=== PATIENT | male | born 1965 | race African-American/Black ===

== ENCOUNTER 2020-08-31 13:57 | Observation (INO) ==
--- NOTE | 2020-08-31 15:07 | DR.SOBA ---
HPI Time Seen Time Seen by Provider: 08/31/20 15:02 HPI Comment HPI Comment: PATIENT IS 54YR OLD MALE IN ER WITH INCREASING SON, PLEURITC CHEST PAIN AND WEAKNESS TIMES ONE WEEK. WORSE 3 DAYS AGO. PERIPHERAL EDEMA WELL. ON LASIX AND TAKEN MEDS INSTRUCTED. NO FEVER OR COUGH. NAUSEATED BUT NO VOM ITING. Complaints Chief Complaint Doctors Comments: INCREASING SOB TIMES ONE WEEK. Chief Complaint:: Pt reports increasing SOB with exertion x1 week, got worse 3 days ago after getting his COVID vaccine. Lungs CTA in triage. COVID-19 Coronavirus risk:travel/contact w/high risk person: No Has patient experienced Coronavirus symptoms: No Reviewed Nurses Notes Reviewed: Yes Source History Provided: Patient Mode of Arrival Mode of Arrival: Ambulatory Timing Onset of Chief Complaint: 08/24/20 Context Onset:: At Rest PE Risk Factors:: None History of:: CHF Currently on:: Neither Prehospital Care:: None Modifying Factors Worsens:: Exertion and Lying Flat Improves:: Rest and Sitting Up Associated Signs and Symptoms Associated Signs and Symptoms: Chest Pain and Leg Swelling If Chest Pain Quality: Pleuritic Location: Substernal If Cough Cough: Nonproductive PMH PMH Past Medical History: Yes Past Medical History: Hypertension Past Medical History Comment: atrial fibrillation Past Surgical History: Yes Past Surgical History Comment: neck, back Family History History of Family Medical Conditions: Yes Family Medical History: Diabetes Mellitus and Hypertension Social History Alcohol Use: Rarely Do you use any recreational Drugs:: No Travel Risk Coronavirus risk:travel/contact w/high risk person: No Has patient experienced Coronavirus symptoms: No Infectious screening Have you traveled outside the country in the last 6 months?: No Isolation: Standard ROS Review of Systems Constitutional: See HPI, Weakness and Fatigue; negative Fever Eyes: No Symptoms Reported and See HPI ENTM: No Symptoms Reported and See HPI; negative Nose Discharge and Nose Congestion Respiratoy: See HPI, Moist Cough and Short of Breath; negative Wheezing Cardiovascular: See HPI and Edema; negative Chest Pain Gastrointestinal/Abdominal: No Symptoms Reported and See HPI; negative Abdominal Pain, Diarrhea and Vomiting Genitourinary: No Symptoms Reported and See HPI; negative Dysuria, Frequency and Hematuria Neurological: See HPI and Weakness; negative Headache and Dizziness Musculoskeletal: See HPI and Back Pain; negative Muscle Pain Integumentary: No Symptoms Reported and See HPI; negative Change in Color, Rash and Juandice Hematologic/Lymphatic: No Symptoms Reported, See HPI and Easy Bruising; negative Swollen Glands Endocrine: No Symptoms Reported and See HPI; negative Increased Thirst and Increased Urine Psychiatric: No Symptoms Reported and See HPI All Other Systems: Reviewed and Negative PE Vital Signs Vitals: Temperature 98.4 F Pulse Rate 52 Respiratory Rate 19 Blood Pressure 142/82 O2 Sat by Pulse Oximetry 100 General Limitations: No Limitations General Appearance: Alert and In No Apparent Distress Head Head Exam: Normal Inspection Eyes Eye exam: Normal Appearance and PERRL; negative Scleral Icterus and Conjunctival Injection ENT ENT Exam: Normal Exam, Normal Oropharynx, Normal External Ear Exam and TM's Normal Bilaterally Neck Neck Exam: Normal Inspection and Trachea Midline; negative Tenderness, Meningismus and Lymphadenopathy Chest Chest Inspection: Normal Inspection and Symmetric Chest Wall Rise; negative Tenderness Respiratory Respiratory Exam: Normal Lung Sounds Bilat, Accessory Muscle Use and Respiratory Distress; negative Chest Wall Tenderness Respiratory Exam: Bilateral: Wheezing and Bilateral: Rhonchi and Lower: Wheezing and Lower: Rhonchi Cardiovascular Cardiovascular Exam: Regular Rate, Normal Rhythm and Normal Heart Sounds; negative Systolic Murmur and Diastolic Murmur Abdominal Exam Abdominal Exam: Normal Inspection, Normal Bowel Sounds and Soft; negative Tenderness Extremities Extremities Exam: Normal Capillary Refill and Edema; negative Tenderness and Calf Tenderness Back Back Exam: Paraspinal Tenderness; negative (R) CVA Tenderness and (L) CVA Tenderness Neurologic Neurological Exam: Alert and Oriented X3; negative Motor Sensory Deficit Psychiatric Psychiatric Exam: Normal Affect and Normal Mood Skin Skin Exam: Warm, Dry, Intact and Normal Color MDM Differential Diagnosis Differential Diagnosis: Bronchitis, CHF, COPD, Dysrhythmia, Hyponatremia, Mycardial Infarction, Pneumonia, Pneumothorax, Pulmonary embolism and Respiratory Insufficiency COURSE Treatment Treatment: SEE ORDERS. LASIX 40MG IV IN ER. URINE OUTPUT INCREASED. Education/Counseling Education/Counseling: Patient Educated On: Diagnosis ROR Labs Reviewed Laboratory Results Reviewed?: Yes Result Diagrams: 09/02/20 05:18 09/02/20 05:18 Laboratory: WBC 9.5 X10^3/uL (3.6-10.0) 08/31/20 15:15 RBC 3.66 X10^6/uL (4.7-6.0) L 08/31/20 15:15 Hgb 9.0 g/dL (13.5-18.0) L 08/31/20 15:15 Hct 28.7 % (42.0-54.0) L 08/31/20 15:15 MCV 78.5 fL (80.0-100.0) L 08/31/20 15:15 MCH 24.6 pg (27.0-34.0) L 08/31/20 15:15 MCHC 31.3 g/dL (33.0-35.0) L 08/31/20 15:15 RDW 23.8 % (11.6-16.5) H 08/31/20 15:15 Plt Count 185 X10^3/uL (150.0-450.0) 08/31/20 15:15 Plt Count Comment Adequate (ADEQUATE) 08/31/20 15:15 MPV 9.7 fL (7.4-11.0) 08/31/20 15:15 Neut % (Auto) 76.0 % (42.0-75.0) H 08/31/20 15:15 Lymph % (Auto) 11.9 % (21.0-51.0) L 08/31/20 15:15 Posey % (Auto) 11.2 % (0.0-13.0) 08/31/20 15:15 Eos % (Auto) 0.0 % (0.9-2.9) L 08/31/20 15:15 Baso % (Auto) 0.9 % (0.2-1.0) 08/31/20 15:15 Neut # (Auto) 7.2 x10^3/uL (2.2-4.8) H 08/31/20 15:15 Lymph # (Auto) 1.1 X10^3/uL (1.3-2.9) L 08/31/20 15:15 [place]y # (Auto) 1.1 x10^3/uL (0.3-0.8) H 08/31/20 15:15 Eos # (Auto) 0.0 x10^3/uL (0.0-0.2) 08/31/20 15:15 Baso # (Auto) 0.1 X10^3/uL (0.0-0.1) 08/31/20 15:15 Absolute Nucleated RBC 5.7 /100WBC 08/31/20 15:15 Total Counted 100 08/31/20 15:15 Neutrophils % (Manual) 66 % (39-76) 08/31/20 15:15 Band Neutrophils % 2 % (0-10) 08/31/20 15:15 Lymphocytes % (Manual) 20 % (13-43) 08/31/20 15:15 Monocytes % (Manual) 12 % (4-9) H 08/31/20 15:15 Nucleated RBCs 8 08/31/20 15:15 Plt Morphology Comment Normal (NORMAL) 08/31/20 15:15 RBC Morphology Abnormal (NORMAL) 08/31/20 15:15 Anisocytosis 2+ A 08/31/20 15:15 Sample Site Rra 08/31/20 17:12 ABG pH 7.480 (7.35-7.45) H 08/31/20 17:12 ABG pCO2 39.0 mmHg (35.0-45.0) 08/31/20 17:12 ABG pO2 94.0 mmHg (80.0-100.0) 08/31/20 17:12 ABG HCO3 29.0 mmol/L (22-26) H 08/31/20 17:12 ABG O2 Saturation 98.0 % (90-100) 08/31/20 17:12 ABG Base Excess 5.2 mmol/L (-2.0-2.0) H 08/31/20 17:12 Nate Test Pos 08/31/20 17:12 A-a Gradient 7.0 mmHg 08/31/20 17:12 FiO2 21.0 08/31/20 17:12 Blood Gas Comments Pt boris well eb 08/31/20 17:12 Sodium 137 mmol/L (136-145) 08/31/20 15:15 Corrected Sodium TNP 08/31/20 15:15 Potassium 3.7 mmol/L (3.5-5.1) 08/31/20 15:15 Chloride 104 mmol/L (98-107) 08/31/20 15:15 Carbon Dioxide 30.0 mmol/L (21-32) 08/31/20 15:15 BUN 17 mg/dL (7-18) 08/31/20 15:15 Creatinine 1.55 mg/dL (0.70-1.30) H 08/31/20 15:15 Est GFR (MDRD) Af Amer 60 (>60) 08/31/20 15:15 Est GFR (MDRD) Non-Af 50 (>60) L 08/31/20 15:15 Glucose 105 mg/dL (65-99) H 08/31/20 15:15 Calcium 9.2 mg/dL (8.5-10.1) 08/31/20 15:15 Corrected Calcium 9.8 mg/dL (8.5-10.1) 08/31/20 15:15 Total Bilirubin 1.70 mg/dL (0.2-1.0) H 08/31/20 15:15 AST 15 Units/L (15-37) 08/31/20 15:15 ALT 26 Units/L (12-78) 08/31/20 15:15 Alkaline Phosphatase 41 Units/L (46-116) L 08/31/20 15:15 Creatine Kinase 43 Units/L (39-308) 08/31/20 18:45 CK-MB (CK-2) < 1.0 ng/mL (0-4.0) 08/31/20 18:45 CK/CKMB % Calc 2.3 % (<4) 08/31/20 18:45 Troponin I 0.10 ng/mL (0-1.5) 08/31/20 18:45 B-Natriuretic Peptide 558 pg/mL (0-79) H* 08/31/20 15:15 Total Protein 6.2 g/dL (6.4-8.2) L 08/31/20 15:15 Albumin 3.3 g/dL (3.4-5.0) L 08/31/20 15:15 Globulin 2.9 g/dL (2.5-4.5) 08/31/20 15:15 Albumin/Globulin Ratio 1.1 Ratio (1.1-2.1) 08/31/20 15:15 Specimen Type Clean catch urine 08/31/20 15:30 Urine Color Dark yellow (YELLOW) 08/31/20 15:30 Urine Appearance Hazy (CLEAR) 08/31/20 15:30 Urine pH 6.0 (5.0 - 8.0) 08/31/20 15:30 Ur Specific [place] 1.020 (1.000-1.030) 08/31/20 15:30 Urine Protein 2+ (NEGATIVE) 08/31/20 15:30 Urine Glucose (UA) Negative (NEGATIVE) 08/31/20 15:30 Urine Ketones Negative (NEGATIVE) 08/31/20 15:30 Urine Occult Blood Negative (NEGATIVE) 08/31/20 15:30 Urine Nitrite Negative (NEGATIVE) 08/31/20 15:30 Urine Bilirubin Negative (NEGATIVE) 08/31/20 15:30 Urine Urobilinogen 1+ (NORMAL) 08/31/20 15:30 Ur Leukocyte Esterase Negative (NEGATIVE) 08/31/20 15:30 Urine RBC 0-2 /HPF (0-3) 08/31/20 15:30 Urine WBC 0-2 /HPF (0-5) 08/31/20 15:30 Ur Squamous Epith Cells Few /HPF (NEGATIVE) 08/31/20 15:30 Urine Bacteria Trace /HPF (NEGATIVE) 08/31/20 15:30 Hyaline Casts Moderate /LPF (NEGATIVE) 08/31/20 15:30 Urine Mucus Moderate /HPF (NEGATIVE) 08/31/20 15:30 Ur Culture Indicated? No/not indicated 08/31/20 15:30 SARS CoV-2 RNA Rapid ANGE Negative (NEGATIVE) 08/31/20 16:58 XRAY XRAY Interpreted by: Radiologist (REPORTS NOTED AND DISCUSSED WITH PATIENT.) and Self EKG Rate: 53 [place]: Normal Rhythm: NSR Block: None Hypertrophy: None ST: Nonsp Opioid Opioid Risk Tool Age (Krishna box if 16-45): No Total: 0 Total Score Risk Category: Low Risk Copyright: Beasley LR predicting aberrant behaviors Diagnosis Discharge Problem: Acute respiratory distress CHF (congestive heart failure) Qualifiers: Heart failure type: combined systolic and diastolic Heart failure chronicity: acute on chronic Qualified Code(s): I50.43 - Acute on chronic combined systolic (congestive) and diastolic (congestive) heart failure Instructions Instructions: Shortness of Breath, Adult, [id number] How to Take Your Blood Pressure, [id number] Heart Failure, [id number] Supporting Someone With Post-Traumatic Stress Disorder Preventing Heart Failure Cooking With Less Salt Forms: Excuse From Work or School Precautions for COVID19 Patient Portal Social Distancing
[2020-08-31 15:25] LABS: BASOPHILS # (AUTO) 0.1 X10^3/uL (0.0-0.1); BASOPHILS % (AUTO) 0.9 % (0.2-1.0); HEMATOCRIT 28.7 % (42.0-54.0); LYMPHOCYTES # (AUTO) 1.1 X10^3/uL (1.3-2.9); LYMPHOCYTES % (AUTO) 11.9 % (21.0-51.0); MEAN CORPUSCULAR HEMOGLOBIN 24.6 pg (27.0-34.0); MEAN CORPUSCULAR HGB CONC 31.3 g/dL (33.0-35.0); MEAN CORPUSCULAR VOLUME 78.5 fL (80.0-100.0); MEAN PLATELET VOLUME 9.7 fL (7.4-11.0); MONOCYTES # (AUTO) 1.1 x10^3/uL (0.3-0.8); MONOCYTES % (AUTO) 11.2 % (0.0-13.0); NEUTROPHILS # (AUTO) 7.2 x10^3/uL (2.2-4.8); PLATELET COUNT 185 X10^3/uL (150.0-450.0); RED BLOOD COUNT 3.66 X10^6/uL (4.7-6.0); RED CELL DISTRIBUTION WIDTH 23.8 % (11.6-16.5)
--- NOTE | 2020-08-31 15:36 | RAD ---
EXAM: CHEST X-RAYHISTORY: Increasing shortness of breath with exertion x1 week. Got worse 3 days after getting Combivent vaccine.TECHNIQUE: AP chest x-ray dated August 31, 2020 at 3:07 PM.COMPARISON: None.FINDINGS:There is evidence for a shallow inspiratory effort with mild prominence of the bronchopulmonary markings and widening of the cardiac silhouette. Note that mild CHF or volume overload cannot be excluded in this radiographic setting. Clinical correlation is advised.There is no gross focal lung consolidation, pleural effusion, or pneumothorax. Status post anterior cervical spine fusion with metallic plate and screws in situ. Mild deformity of the middle diaphysis of the right clavicle and keeping with an old healed fracture. The visualized bony structures are otherwise within normal limits.IMPRESSION:1. Shallow inspiratory effort with mild prominence of the bronchopulmonary markings and widening of the cardiac silhouette; DDX includes mild CHF or volume overload in the appropriate clinical setting; consider mild bronchitis and interstitial pneumonia (e.g. Covid pneumonia) in the appropriate clinical setting.2. Recommend clinical correlation and appropriate follow-up x-ray evaluation to ensure complete clearance as clinically warranted.3. Consider follow evaluation with noncontrast chest CT to rule out Covid pneumonia as clinically warranted.Electronically signed by: Enzo Palmer (Aug 31, 2020 15:34:13)
[2020-08-31 15:43] LABS: BLOOD UREA NITROGEN 17 mg/dL (7-18); CALCIUM 9.2 mg/dL (8.5-10.1); CHLORIDE 104 mmol/L (98-107); CREATININE 1.55 mg/dL (0.70-1.30); SODIUM 137 mmol/L (136-145); eGFR NON BLACK RACES 50 (>60)
[2020-08-31 15:46] LABS: WHITE BLOOD COUNT 9.5 X10^3/uL (3.6-10.0)
[2020-08-31 15:47] LABS: ALANINE AMINOTRANSFERASE 26 Units/L (12-78); ALBUMIN 3.3 g/dL (3.4-5.0); ALKALINE PHOSPHATASE 41 Units/L (46-116); ASPARTATE AMINO TRANSFERASE 15 Units/L (15-37); BAND NEUTROPHILS % 2 % (0-10); CKMB % 2.4 % (<4); COR CA(FOR HYPOALB) 9.8 mg/dL (8.5-10.1); CREATINE KINASE 42 Units/L (39-308); CREATINE KINASE MB < 1.0 ng/mL (0-4.0); TOTAL PROTEIN 6.2 g/dL (6.4-8.2)
[2020-08-31 15:48] LABS: ANISOCYTOSIS 2+; PLATELET MORPHOLOGY COMMENT NORMAL (NORMAL)
[2020-08-31 16:05] LABS: BILIRUBIN,URINE NEGATIVE (NEGATIVE); BLOOD/HEMOGLOBIN,URINE NEGATIVE (NEGATIVE); GLUCOSE, URINE NEGATIVE (NEGATIVE); KETONES,URINE NEGATIVE (NEGATIVE); LEUKOCYTE ESTERASE ,URINE NEGATIVE (NEGATIVE); NITRITES,URINE NEGATIVE (NEGATIVE); PROTEIN,URINE 2+ (NEGATIVE); UROBILINOGEN,URINE 1+ (NORMAL)
[2020-08-31 16:27] LABS: APPEARANCE,URINE HAZY (CLEAR); BACTERIA,URINE TRACE /HPF (NEGATIVE); COLOR,URINE DARK YELLOW (YELLOW); HYALINE CASTS, URINE MODERATE /LPF (NEGATIVE); MUCUS,URINE MODERATE /HPF (NEGATIVE); RBC,URINE 0-2 /HPF (0-3); SQUAMOUS EPITHELIAL CELL,UR FEW /HPF (NEGATIVE)
[2020-08-31 17:15] LABS: ABG ALLEN TEST POS; ABG BASE EXCESS 5.2 mmol/L (-2.0-2.0)
--- NOTE | 2020-08-31 17:32 | CT ---
CHEST W/O CONCLINICAL INDICATION: Shortness of breath on exertionPROCEDURE: Noncontrast CT images were obtained through the chest. Dose reduction techniques including Automated Exposure Control (AEC) and adjustment of mA and kV were utlized.COMPARISON: [None]FINDINGS:The sensitivity for focal lesion detection within the mediastinum is diminished without the use of IV contrast.Cardiomegaly. No pericardial effusion . No suspicious mediastinal or axillary lymph nodes . No focal consolidations, pleural effusions or pneumothorax .Airways are patent . No suspicious pulmonary nodules or masses .Limited images of the upper abdomen are unremarkable.Severe osteopenia multiple compression deformities as well as multiple kyphoplasties. There are some lucent lesions within T9, T10, T11.IMPRESSION:1. Cardiomegaly.2. Lucent lesions within the lower thoracic spine as above. Metastatic disease or primary bony malignancy cannot be excluded.Electronically signed by: LUCINDA NEAL (Aug 31, 2020 17:30:52)
[2020-08-31] MEDS ORDERED: LASIX IVP ONE ×2 (17:42→17:54)
[2020-08-31 19:21] LABS: CKMB % 2.3 % (<4); CREATINE KINASE 43 Units/L (39-308); CREATINE KINASE MB < 1.0 ng/mL (0-4.0)
[2020-09-01] MEDS ORDERED: PATIENT'S HOME MEDICATION (Oxycodone 20 mg tablet) PO PRN (00:44)
[2020-09-01] MEDS ORDERED: CATAPRES TAB 0.1 MG PO ONE (00:52)
[2020-09-01] MEDS ORDERED: ROXICODONE TAB 5 MG PO PRN (00:55)
[2020-09-01] MEDS: AMBIEN PO SCH ×2 (01:04→20:25)
[2020-09-01 03:51] VITALS: BMI 31.4
[2020-09-01 06:36] LABS: BASOPHILS # (AUTO) 0.1 X10^3/uL (0.0-0.1); BASOPHILS % (AUTO) 0.6 % (0.2-1.0); EOSINOPHILS % (AUTO) 0.2 % (0.9-2.9); HEMATOCRIT 28.3 % (42.0-54.0); HEMOGLOBIN 8.9 g/dL (13.5-18.0); LYMPHOCYTES # (AUTO) 1.6 X10^3/uL (1.3-2.9); LYMPHOCYTES % (AUTO) 16.2 % (21.0-51.0); MEAN CORPUSCULAR HEMOGLOBIN 24.5 pg (27.0-34.0); MEAN CORPUSCULAR HGB CONC 31.6 g/dL (33.0-35.0); MEAN CORPUSCULAR VOLUME 77.7 fL (80.0-100.0); MEAN PLATELET VOLUME 9.1 fL (7.4-11.0); MONOCYTES # (AUTO) 1.5 x10^3/uL (0.3-0.8); NEUTROPHILS # (AUTO) 6.9 x10^3/uL (2.2-4.8); PLATELET COUNT 141 X10^3/uL (150.0-450.0); RED BLOOD COUNT 3.64 X10^6/uL (4.7-6.0); RED CELL DISTRIBUTION WIDTH 23.5 % (11.6-16.5); WHITE BLOOD COUNT 10.2 X10^3/uL (3.6-10.0)
[2020-09-01 07:08] LABS: ALANINE AMINOTRANSFERASE 25 Units/L (12-78); ALKALINE PHOSPHATASE 36 Units/L (46-116); ASPARTATE AMINO TRANSFERASE 18 Units/L (15-37); BLOOD UREA NITROGEN 18 mg/dL (7-18); CALCIUM 8.7 mg/dL (8.5-10.1); CARBON DIOXIDE 27.1 mmol/L (21-32); CHLORIDE 103 mmol/L (98-107); CKMB % 2.5 % (<4); COR CA(FOR HYPOALB) 9.5 mg/dL (8.5-10.1); COR NA(FOR HYPERGLY) 141 mmol/L (136-145); CREATINE KINASE 40 Units/L (39-308); CREATINE KINASE MB < 1.0 ng/mL (0-4.0); CREATININE 1.49 mg/dL (0.70-1.30); MAGNESIUM 1.8 mg/dL (1.7-2.9); SODIUM 139 mmol/L (136-145); TOTAL PROTEIN 5.7 g/dL (6.4-8.2); eGFR NON BLACK RACES 52 (>60)
[2020-09-01 07:30] LABS: TROPONIN I 0.09 ng/mL (0-1.5)
[2020-09-01 07:38] LABS: ANISOCYTOSIS 2+; PLATELET MORPHOLOGY COMMENT NORMAL (NORMAL)
[2020-09-01 07:39] LABS: HYPOCHROMASIA SLIGHT; MICROCYTOSIS SLIGHT
[2020-09-01] MEDS: COMPAZINE PO SCH (09:47)
[2020-09-01] MEDS: ZESTRIL TAB 5 MG PO SCH (09:47)
[2020-09-01] MEDS: LASIX IVP SCH (09:49)
[2020-09-01] MEDS ORDERED: LOVENOX INJ 30 MG SYR SC SCH (11:00)
[2020-09-01 11:45] LABS: CKMB % 2.4 % (<4); CREATINE KINASE MB 1.1 ng/mL (0-4.0); TROPONIN I 0.1 ng/mL (0-1.5)
[2020-09-01] MEDS: K-DUR TAB 20 MEQ PO SCH ×2 (12:38→22:33)
--- NOTE | 2020-09-01 13:41 | DR.H&P ---
H&P - History & Physical for Day of: H&P Date: 09/01/20 - Chief Complaint Chief Complaint: Pt reports increasing SOB with exertion x1 week, got worse 3 days ago after getting his COVID vaccine - History of Present Illness History of Present Illness: PT IS 54BM ER ADMISSION AFTER PRESENTING WITH CO SOB. PT HAD CHF ON CHEST XRAY. PT REPORTS SEES DR RAMOS WITH [facility] AND REPORTS HE USED THE [place] IN [facility] FOR PCP. PT STATES HE HAS "BONE CANCER" AND WAS TO BE SEEN BY VICKIE HUERTA HISTORIAN. PT ADMITTED FOR TREATMENT OF ACUTE CHF EXACERBATION. - Past Medical History Past Medical History: Arthritis, Asthma, CHF, Coronary Artery Disease, Hypertension Additional Medical History: PTSD, "BONE CANCER" - Past Surgical History Surgical History: Other - Family History Family Medical History: Diabetes Mellitus, Hypertension - Social History Does patient currently use any type of tobacco product: No Have you used tobacco products in the last 12 months: No Type of Tobacco Use: None Does any household member use tobacco: No Alcohol Use: Rarely Drug Use: None - Medications Home Medications: No Known Drug Allergies Allergy (Verified 08/31/20 14:03) CONTINUE taking the following medications amiodarone 200 mg PO DAILY 08/31/20 [History] apixaban [Eliquis] 5 mg PO BID 08/31/20 [History] aspirin 81 mg PO ONCE 08/31/20 [History] carvedilol 6.25 mg PO BID 08/31/20 [History] dexamethasone 4 mg PO DAILY 08/31/20 [History] lisinopril 2.5 mg PO DAILY 08/31/20 [History] oxycodone 20 mg PO Q6H PRN 08/31/20 [History] prochlorperazine maleate 10 mg PO DAILY 08/31/20 [History] zolpidem 10 mg PO DAILY 08/31/20 [History] - Review of Systems Constitutional: Weakness Eyes: No Symptoms Reported ENT: No Symptoms Reported Respiratory: SOB with Excertion Cardiovascular: Edema Gastrointestinal: Nausea Musculoskeletal: No Symptoms Reported, Back Pain Skin: No Symptoms Reported Neurological: Weakness - Physical Exam Vital Signs: Temperature 98.2 F Pulse Rate [Bilateral] 53 Pulse Rate 52 Respiratory Rate 16 Blood Pressure [Left Arm] 118/62 Blood Pressure 142/82 O2 Sat by Pulse Oximetry 99 Oriented: Normal Eyes: Normal Ear: Normal Nose: Normal Throat: Normal Respiratory: RLL Diminished, LLL Diminished Cardiovascular: Edema : Normal Auscultation: Bowel Sounds: Normal Palpation: Normal Tenderness: Normal Skin: Decreased Turgur Musculoskeletal: Right, Left, Back:Thoracic, Back:Lumbar, Motor Deficit Psychiatric: Normal Mood Description: Calm Speech Pattern: Clear, Appropriate - Assessment/Plan (1) SOB (shortness of breath) Status: Acute Plan: ADMIT, SERIAL CE AND EKG. OBTAIN LAST ECHO FROM [facility]. STRICT I&OS, IV LASIX. SUPPLMENTAL O2, RESP CONSULT. VERIFY HOME MEDICATION, BP CONTROL (2) CHF (congestive heart failure) Status: Acute (3) Hypertension Status: Acute (4) PTSD (post-traumatic stress disorder) Status: Acute (5) Bone cancer Status: Acute - Allergies Allergies/Adverse Reactions: Allergies Allergy/AdvReac Type Severity Reaction Status Date / Time No Known Drug Allergies Allergy Verified 08/31/20 14:03
[2020-09-01] MEDS: ELIQUIS PO SCH ×2 (14:26→20:24)
[2020-09-01] MEDS: COREG TAB 6.25 MG PO SCH ×2 (14:26→20:24)
[2020-09-01] MEDS ORDERED: NS 250 ML IV 250 ML IV ONE (22:45)
[2020-09-01] MEDS: MAGNESIUM SULFATE 1 GRAM/100 mL PREMIX 1 GM/100 ML BAG IV PRN (22:50)
[2020-09-02] MEDS: MAGNESIUM SULFATE 1 GRAM/100 mL PREMIX 1 GM/100 ML BAG IV PRN (00:30)
--- NOTE | 2020-09-02 05:37 | RAD ---
HISTORYCHF SOBSTUDYPortable AP [id number] cardiomegaly with essentially clear lungs and pleural spaces. There is no mediastinal, hilar or pleural lesion.IMPRESSIONNo change or new abnormality since 08/31/2020.Electronically signed by: NANDINI HUDSON (Sep 02, 2020 05:35:00)
[2020-09-02 06:09] LABS: ALANINE AMINOTRANSFERASE 20 Units/L (12-78); ALBUMIN 2.9 g/dL (3.4-5.0); ALKALINE PHOSPHATASE 47 Units/L (46-116); ASPARTATE AMINO TRANSFERASE 15 Units/L (15-37); BLOOD UREA NITROGEN 14 mg/dL (7-18); CALCIUM 8.9 mg/dL (8.5-10.1); CARBON DIOXIDE 30.5 mmol/L (21-32); CHLORIDE 104 mmol/L (98-107); COR CA(FOR HYPOALB) 9.8 mg/dL (8.5-10.1); COR NA(FOR HYPERGLY) 142 mmol/L (136-145); CREATININE 1.39 mg/dL (0.70-1.30); SODIUM 141 mmol/L (136-145); TOTAL PROTEIN 5.6 g/dL (6.4-8.2); eGFR NON BLACK RACES 56 (>60)
[2020-09-02 06:10] LABS: BASOPHILS # (AUTO) 0.1 X10^3/uL (0.0-0.1); BASOPHILS % (AUTO) 1.2 % (0.2-1.0); EOSINOPHILS # (AUTO) 0.1 x10^3/uL (0.0-0.2); EOSINOPHILS % (AUTO) 1.4 % (0.9-2.9); HEMATOCRIT 29.4 % (42.0-54.0); LYMPHOCYTES # (AUTO) 1.8 X10^3/uL (1.3-2.9); LYMPHOCYTES % (AUTO) 20.1 % (21.0-51.0); MEAN CORPUSCULAR HGB CONC 30.7 g/dL (33.0-35.0); MEAN CORPUSCULAR VOLUME 78.3 fL (80.0-100.0); MEAN PLATELET VOLUME 9.5 fL (7.4-11.0); MONOCYTES # (AUTO) 1.2 x10^3/uL (0.3-0.8); MONOCYTES % (AUTO) 13.7 % (0.0-13.0); NEUTROPHILS # (AUTO) 5.6 x10^3/uL (2.2-4.8); NEUTROPHILS % (AUTO) 63.6 % (42.0-75.0); PLATELET COUNT 162 X10^3/uL (150.0-450.0); RED BLOOD COUNT 3.76 X10^6/uL (4.7-6.0); RED CELL DISTRIBUTION WIDTH 23.1 % (11.6-16.5); WHITE BLOOD COUNT 8.8 X10^3/uL (3.6-10.0)
[2020-09-02 06:30] LABS: ANISOCYTOSIS 2+; GIANT PLATELET RARE; HYPOCHROMASIA 1+; MICROCYTOSIS SLIGHT; PLATELET MORPHOLOGY COMMENT ABNORMAL (NORMAL); POIKILOCYTOSIS 1+
[2020-09-02 06:36] LABS: TEAR DROP CELLS SLIGHT
[2020-09-02] MEDS ORDERED: ASPIRIN EC 81 MG PO SCH (09:00)
[2020-09-02] MEDS: LASIX IVP SCH (09:57)
[2020-09-02] MEDS: COMPAZINE PO SCH (09:57)
[2020-09-02] MEDS: ZESTRIL TAB 5 MG PO SCH (09:57)
[2020-09-02] MEDS: COREG TAB 6.25 MG PO SCH (09:58)
[2020-09-02] MEDS: ELIQUIS PO SCH (09:58)
[2020-09-02] MEDS: K-DUR TAB 20 MEQ PO SCH (09:58)
[2020-09-02 12:06] VITALS: BP 132/84
== END 2020-09-02 13:40 | disposition home or self-care (01) ==
LOC: MED/SURG 13:57 → ER 13:57 → MED/SURG 09-01 00:25
PROVIDERS: ADMIT Internal Medicine; ATTEND Internal Medicine
DX: R06.03 Acute respiratory distress; Z20.822 Contact with and (suspected) exposure to COVID-19; Z79.01 Long term (current) use of anticoagulants; R26.89 Other abnormalities of gait and mobility; I10 Essential (primary) hypertension; F43.11 Post-traumatic stress disorder, acute; I50.9 Heart failure, unspecified

== ENCOUNTER 2020-09-18 02:24 | Observation (INO) ==
[2020-09-18] MEDS ORDERED: ZOFRAN INJ 4 MG VIAL IM ONE (03:09)
[2020-09-18] MEDS ORDERED: COREG TAB 25 MG PO STA (03:11)
--- NOTE | 2020-09-18 03:24 | DR.SOBA ---
HPI <Jen Peter - Last Filed: 09/18/20 07:41> Time Seen Time Seen by Provider: 09/18/20 03:03 Primary Care Physician Primary Care Physician: Gonsalo MYERS HPI Comment HPI Comment: Started with n/v earlier in the night and is now feeling like he can't catch his breath when he sits up; sob and "a little cp" but no cough, whe ezing, fever, chills, abd pain, swelling, rash; denies cigarettes; drinks "a wine cooler" occasionally but none tonight; says he's taking his meds as prescribed and hasn't missed any doses. Complaints Chief Complaint:: C/O DIFF BREATHING, VOMITTING FOR APPROX 1 DAY COVID-19 Coronavirus risk:travel/contact w/high risk person: No Has patient experienced Coronavirus symptoms: Yes Coronavirus symptoms experienced: Fever and Shortness of Breath Source History Provided: Patient Mode of Arrival Mode of Arrival: Ambulatory Timing Onset of Chief Complaint: 09/17/20 PMH <Jen Peter - Last Filed: 09/18/20 07:41> PMH Past Medical History: Yes Past Medical History: Hypertension and Sleep Apnea Past Surgical History: No Surgical History: Other Family History History of Family Medical Conditions: No Family Medical History: Diabetes Mellitus and Hypertension Social History Does patient currently use any type of tobacco product: No Have you used tobacco products in the last 12 months: No Type of Tobacco Use: None Does any household member use tobacco: No Alcohol Use: Occasionally and Other Do you use any recreational Drugs:: No Lives With: Spouse Lives Where: Home Travel Risk Coronavirus risk:travel/contact w/high risk person: No Has patient experienced Coronavirus symptoms: Yes Coronavirus symptoms experienced: Fever and Shortness of Breath Infectious screening In the last 2 months have you had wt loss of >10#?: NO Have you had fever, night sweats or hemotysis?: No Have you traveled outside the country in the last 6 months?: No Isolation: Standard ROS <Jen Peter - Last Filed: 09/18/20 07:41> Review of Systems Constitutional: No Symptoms Reported Eyes: No Symptoms Reported ENTM: No Symptoms Reported Genitourinary: No Symptoms Reported Neurological: No Symptoms Reported Musculoskeletal: No Symptoms Reported Integumentary: No Symptoms Reported Hematologic/Lymphatic: No Symptoms Reported Endocrine: No Symptoms Reported PE <Jen Peter - Last Filed: 09/18/20 07:41> Vital Signs Vitals: Temperature 99.9 F Pulse Rate [Left] 74 Pulse Rate 83 Respiratory Rate 18 Blood Pressure [Left Arm] 138/84 Blood Pressure 176/110 O2 Sat by Pulse Oximetry 96 General Limitations: No Limitations General Appearance: Alert and In No Apparent Distress Head Head Exam: Normal Inspection Eyes Eye exam: Normal Appearance ENT ENT Exam: Normal Exam Neck Neck Exam: Normal Inspection Chest Chest Inspection: Normal Inspection Respiratory Respiratory Exam: Normal Lung Sounds Bilat Respiratory Exam: Bilateral: Clear to Auscultation Cardiovascular Cardiovascular Exam: Regular Rate and Normal Rhythm Abdominal Exam Abdominal Exam: Normal Inspection, Normal Bowel Sounds, Soft and Tenderness Abdominal Tenderness: Epigastrium Extremities Extremities Exam: Normal Inspection Back Back Exam: Normal Inspection Neurologic Neurological Exam: Alert and Oriented X3 Skin Skin Exam: Warm, Dry, Intact and Normal Color <MAHAMED SULLIVAN - Last Filed: 09/18/20 10:19> Vital Signs Vitals: Temperature 99.9 F Pulse Rate [Left] 74 Pulse Rate 83 Respiratory Rate 18 Blood Pressure [Left Arm] 138/84 Blood Pressure 176/110 O2 Sat by Pulse Oximetry 96 COURSE <Jen Peter - Last Filed: 09/18/20 07:41> Treatment Treatment: [id number] care to Dr Sullivan ROR <Jen Peter - Last Filed: 09/18/20 07:41> Labs Reviewed Result Diagrams: 09/18/20 03:23 09/18/20 03:23 Laboratory: WBC 15.8 X10^3/uL (3.6-10.0) H 09/18/20 03:23 RBC 4.43 X10^6/uL (4.7-6.0) L 09/18/20 03:23 Hgb 10.8 g/dL (13.5-18.0) L 09/18/20 03:23 Hct 34.9 % (42.0-54.0) L 09/18/20 03:23 MCV 78.7 fL (80.0-100.0) L 09/18/20 03:23 MCH 24.3 pg (27.0-34.0) L 09/18/20 03:23 MCHC 30.9 g/dL (33.0-35.0) L 09/18/20 03:23 RDW 24.6 % (11.6-16.5) H 09/18/20 03:23 Plt Count 166 X10^3/uL (150.0-450.0) 09/18/20 03:23 Plt Count Comment Adequate (ADEQUATE) 09/18/20 03:23 MPV 9.0 fL (7.4-11.0) 09/18/20 03:23 Neut % (Auto) 84.7 % (42.0-75.0) H 09/18/20 03:23 Lymph % (Auto) 9.9 % (21.0-51.0) L 09/18/20 03:23 [place] % (Auto) 4.1 % (0.0-13.0) 09/18/20 03:23 Eos % (Auto) 0.1 % (0.9-2.9) L 09/18/20 03:23 Baso % (Auto) 1.2 % (0.2-1.0) H 09/18/20 03:23 Neut # (Auto) 13.4 x10^3/uL (2.2-4.8) H 09/18/20 03:23 Lymph # (Auto) 1.6 X10^3/uL (1.3-2.9) 09/18/20 03:23 [place] # (Auto) 0.7 x10^3/uL (0.3-0.8) 09/18/20 03:23 Eos # (Auto) 0.0 x10^3/uL (0.0-0.2) 09/18/20 03:23 Baso # (Auto) 0.2 X10^3/uL (0.0-0.1) H 09/18/20 03:23 Absolute Nucleated RBC 3.6 /100WBC 09/18/20 03:23 Total Counted 100 09/18/20 03:23 Neutrophils % (Manual) 83 % (39-76) H 09/18/20 03:23 Band Neutrophils % 5 % (0-10) 09/18/20 03:23 Lymphocytes % (Manual) 7 % (13-43) L 09/18/20 03:23 Monocytes % (Manual) 5 % (4-9) 09/18/20 03:23 Nucleated RBCs 12 09/18/20 03:23 Plt Morphology Comment Normal (NORMAL) 09/18/20 03:23 RBC Morphology Abnormal (NORMAL) 09/18/20 03:23 Hypochromasia Slight A 09/18/20 03:23 Poikilocytosis 1+ A 09/18/20 03:23 Anisocytosis 3+ A 09/18/20 03:23 Target Cells Present 09/18/20 03:23 Tear Drop Cells Present 09/18/20 03:23 Ovalocytes Present 09/18/20 03:23 Sodium 140 mmol/L (136-145) 09/18/20 03:23 Corrected Sodium 142 mmol/L (136-145) 09/18/20 03:23 Potassium 4.2 mmol/L (3.5-5.1) 09/18/20 03:23 Chloride 102 mmol/L (98-107) 09/18/20 03:23 Carbon Dioxide 28.1 mmol/L (21-32) 09/18/20 03:23 BUN 21 mg/dL (7-18) H 09/18/20 03:23 Creatinine 1.70 mg/dL (0.70-1.30) H 09/18/20 03:23 Est GFR (MDRD) Af Amer 54 (>60) L 09/18/20 03:23 Est GFR (MDRD) Non-Af 45 (>60) L 09/18/20 03:23 Glucose 187 mg/dL (65-99) H 09/18/20 03:23 Calcium 9.5 mg/dL (8.5-10.1) 09/18/20 03:23 Corrected Calcium TNP 09/18/20 03:23 Total Bilirubin 3.50 mg/dL (0.2-1.0) H 09/18/20 03:23 AST 20 Units/L (15-37) 09/18/20 03:23 ALT 29 Units/L (12-78) 09/18/20 03:23 Alkaline Phosphatase 46 Units/L (46-116) 09/18/20 03:23 B-Natriuretic Peptide 1630 pg/mL (0-79) H* 09/18/20 03:23 Total Protein 6.9 g/dL (6.4-8.2) 09/18/20 03:23 Albumin 3.9 g/dL (3.4-5.0) 09/18/20 03: Globulin 3.0 g/dL (2.5-4.5) 09/18/20 03: Albumin/Globulin Ratio 1.3 Ratio (1.1-2.1) 09/18/20 03:23 Specimen Type Clean catch urine 09/18/20 05:23 Urine Color Pale yellow (YELLOW) 09/18/20 05:23 Urine Appearance Clear (CLEAR) 09/18/20 05:23 Urine pH 7.0 (5.0 - 8.0) 09/18/20 05:23 Ur Specific [place] 1.010 (1.000-1.030) 09/18/20 05:23 Urine Protein Negative (NEGATIVE) 09/18/20 05:23 Urine Glucose (UA) Negative (NEGATIVE) 09/18/20 05:23 Urine Ketones Negative (NEGATIVE) 09/18/20 05:23 Urine Occult Blood Negative (NEGATIVE) 09/18/20 05:23 Urine Nitrite Negative (NEGATIVE) 09/18/20 05:23 Urine Bilirubin Negative (NEGATIVE) 09/18/20 05:23 Urine Urobilinogen Normal (NORMAL) 09/18/20 05:23 Ur Leukocyte Esterase Negative (NEGATIVE) 09/18/20 05:23 SARS CoV-2 RNA Rapid ANGE Negative (NEGATIVE) 09/18/20 09:30 <MAHAMED SULLIVAN - Last Filed: 09/18/20 10:19> Labs Reviewed Laboratory: WBC 15.8 X10^3/uL (3.6-10.0) H 09/18/20 03:23 RBC 4.43 X10^6/uL (4.7-6.0) L 09/18/20 03:23 Hgb 10.8 g/dL (13.5-18.0) L 09/18/20 03:23 Hct 34.9 % (42.0-54.0) L 09/18/20 03:23 MCV 78.7 fL (80.0-100.0) L 09/18/20 03:23 MCH 24.3 pg (27.0-34.0) L 09/18/20 03:23 MCHC 30.9 g/dL (33.0-35.0) L 09/18/20 03:23 RDW 24.6 % (11.6-16.5) H 09/18/20 03:23 Plt Count 166 X10^3/uL (150.0-450.0) 09/18/20 03:23 Plt Count Comment Adequate (ADEQUATE) 09/18/20 03:23 MPV 9.0 fL (7.4-11.0) 09/18/20 03:23 Neut % (Auto) 84.7 % (42.0-75.0) H 09/18/20 03:23 Lymph % (Auto) 9.9 % (21.0-51.0) L 09/18/20 03:23 [place] % (Auto) 4.1 % (0.0-13.0) 09/18/20 03:23 Eos % (Auto) 0.1 % (0.9-2.9) L 09/18/20 03:23 Baso % (Auto) 1.2 % (0.2-1.0) H 09/18/20 03:23 Neut # (Auto) 13.4 x10^3/uL (2.2-4.8) H 09/18/20 03:23 Lymph # (Auto) 1.6 X10^3/uL (1.3-2.9) 09/18/20 03:23 [place] # (Auto) 0.7 x10^3/uL (0.3-0.8) 09/18/20 03:23 Eos # (Auto) 0.0 x10^3/uL (0.0-0.2) 09/18/20 03:23 Baso # (Auto) 0.2 X10^3/uL (0.0-0.1) H 09/18/20 03:23 Absolute Nucleated RBC 3.6 /100WBC 09/18/20 03:23 Total Counted 100 09/18/20 03:23 Neutrophils % (Manual) 83 % (39-76) H 09/18/20 03:23 Band Neutrophils % 5 % (0-10) 09/18/20 03:23 Lymphocytes % (Manual) 7 % (13-43) L 09/18/20 03:23 Monocytes % (Manual) 5 % (4-9) 09/18/20 03:23 Nucleated RBCs 12 09/18/20 03:23 Plt Morphology Comment Normal (NORMAL) 09/18/20 03:23 RBC Morphology Abnormal (NORMAL) 09/18/20 03:23 Hypochromasia Slight A 09/18/20 03:23 Poikilocytosis 1+ A 09/18/20 03:23 Anisocytosis 3+ A 09/18/20 03:23 Target Cells Present 09/18/20 03:23 Tear Drop Cells Present 09/18/20 03:23 Ovalocytes Present 09/18/20 03:23 Sodium 140 mmol/L (136-145) 09/18/20 03:23 Corrected Sodium 142 mmol/L (136-145) 09/18/20 03:23 Potassium 4.2 mmol/L (3.5-5.1) 09/18/20 03:23 Chloride 102 mmol/L (98-107) 09/18/20 03:23 Carbon Dioxide 28.1 mmol/L (21-32) 09/18/20 03:23 BUN 21 mg/dL (7-18) H 09/18/20 03:23 Creatinine 1.70 mg/dL (0.70-1.30) H 09/18/20 03:23 Est GFR (MDRD) Af Amer 54 (>60) L 09/18/20 03:23 Est GFR (MDRD) Non-Af 45 (>60) L 09/18/20 03:23 Glucose 187 mg/dL (65-99) H 09/18/20 03:23 Calcium 9.5 mg/dL (8.5-10.1) 09/18/20 03:23 Corrected Calcium TNP 09/18/20 03:23 Total Bilirubin 3.50 mg/dL (0.2-1.0) H 09/18/20 03:23 AST 20 Units/L (15-37) 09/18/20 03:23 ALT 29 Units/L (12-78) 09/18/20 03:23 Alkaline Phosphatase 46 Units/L (46-116) 09/18/20 03:23 B-Natriuretic Peptide 1630 pg/mL (0-79) H* 09/18/20 03:23 Total Protein 6.9 g/dL (6.4-8.2) 09/18/20 03:23 Albumin 3.9 g/dL (3.4-5.0) 09/18/20 03:23 Globulin 3.0 g/dL (2.5-4.5) 09/18/20 03:23 Albumin/Globulin Ratio 1.3 Ratio (1.1-2.1) 09/18/20 03:23 Specimen Type Clean catch urine 09/18/20 05:23 Urine Color Pale yellow (YELLOW) 09/18/20 05:23 Urine Appearance Clear (CLEAR) 09/18/20 05:23 Urine pH 7.0 (5.0 - 8.0) 09/18/20 05:23 Ur Specific [place] 1.010 (1.000-1.030) 09/18/20 05:23 Urine Protein Negative (NEGATIVE) 09/18/20 05:23 Urine Glucose (UA) Negative (NEGATIVE) 09/18/20 05:23 Urine Ketones Negative (NEGATIVE) 09/18/20 05:23 Urine Occult Blood Negative (NEGATIVE) 09/18/20 05:23 Urine Nitrite Negative (NEGATIVE) 09/18/20 05:23 Urine Bilirubin Negative (NEGATIVE) 09/18/20 05:23 Urine Urobilinogen Normal (NORMAL) 09/18/20 05:23 Ur Leukocyte Esterase Negative (NEGATIVE) 09/18/20 05:23 SARS CoV-2 RNA Rapid ANGE Negative (NEGATIVE) 09/18/20 09:30 Opioid <Jen Peter - Last Filed: 09/18/20 07:41> Opioid Risk Tool Age (Krishna box if 16-45): No History of Preadolescent Sexual Abuse: No Total: 0 Total Score Risk Category: Low Risk Copyright: Ramos predicting aberrant behaviors <MAHAMED SULLIVAN - Last Filed: 09/18/20 10:19> Opioid Risk Tool Total: 0 Total Score Risk Category: Low Risk <Jen Peter - Last Filed: 09/18/20 07:41> Diagnosis Discharge Problem: Hyperbilirubinemia, Weakness generalized Nausea & vomiting Qualifiers: Vomiting type: unspecified Vomiting Intractability: non-intractable Qualified Code(s): R11.2 - Nausea with vomiting, unspecified Hypertension Qualifiers: Hypertension type: essential hypertension Qualified Code(s): I10 - Essential (primary) hypertension Pulmonary edema Qualifiers: Chronicity: acute Qualified Code(s): J81.0 - Acute pulmonary edema Instructions Forms: Precautions for COVID19 Patient Portal Social Distancing <MAHAMED Melton Filed: 09/18/20 10:19> Additional Notes Additional Notes: PATIENT SIGN OUT TO ME BY BLANCO HRENANDEZ AT 07:40AM. HAVE R KAITWED US GB REPORT. PATIENT IS STILL WEAK AND SOB. NAUSEA HAVE IMPROVED. CONTINUE TO ABDOMINAL PAIN. BILIRUBIN WAS ELEVATED WELL HIS WHITE COUNT. DIURESISNG WITH IV LASIX. BP STILL ELEVATED. PLAN IS TO GIVE CLONIDIN FOR BP CONTROL AND DISCUSS WITH MD CUSTOMER SUCCESS DIRECTOR TO ADMIT PATIENT FOR OBSERVATION. DR. CONWAY WILL ADMIT PATIENT.
[2020-09-18] MEDS ORDERED: ZOFRAN INJ 4 MG VIAL ONE (03:29)
[2020-09-18 03:38] LABS: BASOPHILS # (AUTO) 0.2 X10^3/uL (0.0-0.1); BASOPHILS % (AUTO) 1.2 % (0.2-1.0); EOSINOPHILS % (AUTO) 0.1 % (0.9-2.9); HEMATOCRIT 34.9 % (42.0-54.0); HEMOGLOBIN 10.8 g/dL (13.5-18.0); LYMPHOCYTES # (AUTO) 1.6 X10^3/uL (1.3-2.9); LYMPHOCYTES % (AUTO) 9.9 % (21.0-51.0); MEAN CORPUSCULAR HEMOGLOBIN 24.3 pg (27.0-34.0); MEAN CORPUSCULAR HGB CONC 30.9 g/dL (33.0-35.0); MEAN CORPUSCULAR VOLUME 78.7 fL (80.0-100.0); MONOCYTES # (AUTO) 0.7 x10^3/uL (0.3-0.8); MONOCYTES % (AUTO) 4.1 % (0.0-13.0); NEUTROPHILS # (AUTO) 13.4 x10^3/uL (2.2-4.8); NEUTROPHILS % (AUTO) 84.7 % (42.0-75.0); PLATELET COUNT 166 X10^3/uL (150.0-450.0); RED BLOOD COUNT 4.43 X10^6/uL (4.7-6.0); RED CELL DISTRIBUTION WIDTH 24.6 % (11.6-16.5)
[2020-09-18 03:46] LABS: ALANINE AMINOTRANSFERASE 29 Units/L (12-78); ALBUMIN 3.9 g/dL (3.4-5.0); ALKALINE PHOSPHATASE 46 Units/L (46-116); ASPARTATE AMINO TRANSFERASE 20 Units/L (15-37); BLOOD UREA NITROGEN 21 mg/dL (7-18); CALCIUM 9.5 mg/dL (8.5-10.1); CARBON DIOXIDE 28.1 mmol/L (21-32); CHLORIDE 102 mmol/L (98-107); COR NA(FOR HYPERGLY) 142 mmol/L (136-145); SODIUM 140 mmol/L (136-145); TOTAL PROTEIN 6.9 g/dL (6.4-8.2); eGFR NON BLACK RACES 45 (>60)
[2020-09-18 04:16] LABS: BAND NEUTROPHILS % 5 % (0-10); PLATELET MORPHOLOGY COMMENT NORMAL (NORMAL); WHITE BLOOD COUNT 15.8 X10^3/uL (3.6-10.0)
[2020-09-18 04:17] LABS: ANISOCYTOSIS 3+; HYPOCHROMASIA SLIGHT; OVALOCYTES PRESENT; POIKILOCYTOSIS 1+; TARGET CELLS PRESENT; TEAR DROP CELLS PRESENT
[2020-09-18] MEDS ORDERED: LASIX IVP STA (04:24)
[2020-09-18] MEDS ORDERED: LASIX ONE (04:29)
[2020-09-18] MEDS ORDERED: LASIX IVP ONE ×3 (04:29→21:00)
--- NOTE | 2020-09-18 05:27 | RAD ---
STUDY: FRONTAL VIEW CHESTCOMPARISON: 09/02/2020HISTORY: PT C/O SOB X1 DAYFINDINGS:No focal consolidation is seen.The heart size is globally enlarged with findings suggesting mild degree of pulmonary edema.The mediastinum is unremarkable.There is no evidence of pleural effusion or gross pneumothorax.The trachea is midline.IMPRESSION:1. The heart size is globally enlarged with findings suggesting mild degree of pulmonary edema.Correlation with patient BNP levels may be helpful.Electronically signed by: Tee Talley (Sep 18, 2020 05:25:23)
[2020-09-18 05:36] LABS: BILIRUBIN,URINE NEGATIVE (NEGATIVE); BLOOD/HEMOGLOBIN,URINE NEGATIVE (NEGATIVE); GLUCOSE, URINE NEGATIVE (NEGATIVE); KETONES,URINE NEGATIVE (NEGATIVE); LEUKOCYTE ESTERASE ,URINE NEGATIVE (NEGATIVE); NITRITES,URINE NEGATIVE (NEGATIVE); PROTEIN,URINE NEGATIVE (NEGATIVE); UROBILINOGEN,URINE NORMAL (NORMAL)
[2020-09-18 05:47] LABS: APPEARANCE,URINE CLEAR (CLEAR); COLOR,URINE PALE YELLOW (YELLOW)
--- NOTE | 2020-09-18 07:39 | US ---
HISTORYELEVATED BILI 3.50, NAUSEA, VOMITINGSTUDYABDOMEN USCOMPARISONNoneTECHNIQUEUltrasound of the abdomen complete.FINDINGSThe liver appears mildly echogenic and measures 17 x 10 x 10 cm. Portal vein has hepatopetal flow. The gallbladder appears normal without wall thickening, cholelithiasis, or pericholecystic fluid. Common duct measures normal at 5 mm. The right kidney measures 10 x 4 x 5 cm and the left kidney 9.5 x 5 x 5 cm. No obvious renal mass, stone or hydronephrosis. The spleen is not well visualized. Pancreas is mostly obscured but appears normal in its visualized portion. IVC appears normal proximally. Aorta is not well visualized.IMPRESSIONMildly echogenic liver suggestive of hepatic steatosis or other parenchymal disease. Gallbladder appears normal. No common duct dilatationElectronically signed by: Gallito Rubi (Sep 18, 2020 07:37:31)
[2020-09-18] MEDS ORDERED: ZESTRIL TAB 5 MG PO ONE (08:23)
[2020-09-18] MEDS ORDERED: COREG TAB 6.25 MG PO ONE (08:24)
[2020-09-18] MEDS ORDERED: CATAPRES TAB 0.2 MG PO ONE (08:27)
[2020-09-18] MEDS ORDERED: CATAPRES TAB 0.2 MG ONE (08:49)
[2020-09-18] MEDS ORDERED: ZOFRAN INJ 4 MG VIAL IVP PRN (10:15)
[2020-09-18] MEDS: PEPCID 20 MG IV PREMIX* 20 MG/50 ML BAG IV SCH (11:58)
[2020-09-18 12:11] LABS: CKMB % 2.5 % (<4); TROPONIN I 0.17 ng/mL (0-1.5)
[2020-09-18] MEDS ORDERED: NS 250 ML IV 250 ML IV ONE (15:49)
[2020-09-18] MEDS: LEVAQUIN PREMIX IV 500 MG 500 MG/100 ML BAG IV SCH (15:50)
[2020-09-18] MEDS: ALDACTONE TAB 25 MG PO SCH (15:50)
[2020-09-18 18:04] LABS: CREATINE KINASE 33 Units/L (39-308); CREATINE KINASE MB < 1.0 ng/mL (0-4.0); TROPONIN I 0.21 ng/mL (0-1.5)
[2020-09-18] MEDS ORDERED: COREG TAB 6.25 MG ONE (19:11)
[2020-09-18] MEDS: COREG TAB 6.25 MG PO SCH (20:27)
[2020-09-18] MEDS: RESTORIL CAP 15 MG PO PRN (22:21)
[2020-09-19 00:11] LABS: CKMB % 3.2 % (<4); CREATINE KINASE 31 Units/L (39-308); CREATINE KINASE MB < 1.0 ng/mL (0-4.0); TROPONIN I 0.21 ng/mL (0-1.5)
[2020-09-19] MEDS ORDERED: ZESTRIL TAB 5 MG ONE (04:31)
[2020-09-19] MEDS: COREG TAB 6.25 MG PO SCH ×3 (05:34→21:55)
[2020-09-19] MEDS: ZESTRIL TAB 5 MG PO SCH ×2 (05:34→08:02)
[2020-09-19] MEDS: ALDACTONE TAB 25 MG PO SCH ×3 (05:34→08:02)
[2020-09-19 06:03] LABS: BASOPHILS # (AUTO) 0.1 X10^3/uL (0.0-0.1); BASOPHILS % (AUTO) 0.7 % (0.2-1.0); EOSINOPHILS # (AUTO) 0.1 x10^3/uL (0.0-0.2); EOSINOPHILS % (AUTO) 1.1 % (0.9-2.9); HEMATOCRIT 34.3 % (42.0-54.0); HEMOGLOBIN 10.5 g/dL (13.5-18.0); LYMPHOCYTES # (AUTO) 1.2 X10^3/uL (1.3-2.9); LYMPHOCYTES % (AUTO) 10.7 % (21.0-51.0); MEAN CORPUSCULAR HEMOGLOBIN 23.9 pg (27.0-34.0); MEAN CORPUSCULAR HGB CONC 30.6 g/dL (33.0-35.0); MEAN CORPUSCULAR VOLUME 78.3 fL (80.0-100.0); MEAN PLATELET VOLUME 10.4 fL (7.4-11.0); MONOCYTES # (AUTO) 0.7 x10^3/uL (0.3-0.8); MONOCYTES % (AUTO) 6.4 % (0.0-13.0); NEUTROPHILS # (AUTO) 9.3 x10^3/uL (2.2-4.8); NEUTROPHILS % (AUTO) 81.1 % (42.0-75.0); PLATELET COUNT 162 X10^3/uL (150.0-450.0); RED BLOOD COUNT 4.39 X10^6/uL (4.7-6.0); RED CELL DISTRIBUTION WIDTH 24.1 % (11.6-16.5); WHITE BLOOD COUNT 11.4 X10^3/uL (3.6-10.0)
[2020-09-19 06:08] LABS: ALBUMIN 3.1 g/dL (3.4-5.0); CHOL/HDL RATIO 3.3 (0.0-5.0); COR CA(FOR HYPOALB) 9.7 mg/dL (8.5-10.1); CREATININE 1.83 mg/dL (0.70-1.30); MAGNESIUM 1.6 mg/dL (1.7-2.9); TOTAL PROTEIN 5.8 g/dL (6.4-8.2)
[2020-09-19 06:23] LABS: ANISOCYTOSIS 3+; PLATELET MORPHOLOGY COMMENT NORMAL (NORMAL)
[2020-09-19 06:25] LABS: HYPOCHROMASIA SLIGHT; POIKILOCYTOSIS SLIGHT
[2020-09-19 06:26] LABS: TARGET CELLS OCC.
[2020-09-19 06:27] LABS: TEAR DROP CELLS OCC.
[2020-09-19] MEDS ORDERED: POTASSIUM CHLORIDE LIQ 20 MEQ UDC PO PRN (06:30)
[2020-09-19] MEDS ORDERED: POTASSIUM CHL 60 MEQ/NS 0.45% 500 ML IV PRN (06:30)
[2020-09-19] MEDS ORDERED: K-RIDER 10 MEQ/NS 100 ML 10 MEQ/100 ML BAG IV PRN (06:30)
[2020-09-19] MEDS ORDERED: K-DUR TAB 20 MEQ PO PRN (06:30)
[2020-09-19] MEDS ORDERED: POTASSIUM CHL 40 MEQ/NS 0.45% 500 ML IV PRN (06:30)
[2020-09-19] MEDS ORDERED: KLOR-CON PO PRN (06:30)
[2020-09-19] MEDS ORDERED: MICRO K EXTEN CAP 10 MEQ PO PRN (06:30)
--- NOTE | 2020-09-19 06:31 | RAD ---
HISTORYSOBSTUDYCHEST, 1 [id number]/29/2021.TECHNIQUEAP view of the chestFINDINGSThe cardiac silhouette is stably enlarged. Mediastinal contours appear stable. Mild improvement in scattered bilateral hazy and interstitial lung opacities. No definite pleural effusion or pneumothorax. Soft tissue attenuation limits evaluation.IMPRESSIONMild improvement in presumed pulmonary edema.Electronically signed by: Gallito Rubi (Sep 19, 2020 06:29:28)
[2020-09-19] MEDS: PEPCID 20 MG IV PREMIX* 20 MG/50 ML BAG IV SCH (08:03)
[2020-09-19] MEDS: LEVAQUIN PREMIX IV 500 MG 500 MG/100 ML BAG IV SCH (08:36)
[2020-09-19 09:10] VITALS: BMI 30.2
[2020-09-19] MEDS ORDERED: LASIX IVP SCH (11:00)
--- NOTE | 2020-09-19 12:53 | DR.H&P ---
H&P - History & Physical for Day of: H&P Date: 09/18/20 - Chief Complaint Chief Complaint: SOB, COUGH, CHEST PAIN, NAUSEA, VOMITING - History of Present Illness History of Present Illness: IS A 54 YEAR OLD B/M PATIENT OF [facility] IN [place], [place]. HE PRESENTED TO THE ER WITH COMPLAINTS OF NAUSEA, VOMITING, SHORNTESS OF BREATH, COUGH, AND CHEST PAIN. HE DENIED WHEEZING, FEVER, CHILLS, ABDOMINAL PAIN, OR ABDOMINAL SWELLING. SYMPTOMS STARTED ONE DAY PRIOR AND HAVE PROGRESSIVELY GOTTEN WORSE. HE DOES HAVE A PMH OF HTN, SLEEP APNEA, AND CHF. HE WAS HOSPITALIZED AT THIS FACILITY ABOUT TWO WEEKS AGO DUE TO SAME SYMPTOMS. A CHEST CT AT THAT TIME ALSO PICKED UP ON LUCENT LESIONS WITHIN THE LOWER T-SPINE WHICH WAS SUGGESTED TO BE METASTATIC DISEASE. PATIENT REPORTS THAT HE WAS AWARE OF THOSE FINDINGS AND WAS RECENTLY DIAGNOSED WITH BONE CANCER. HE IS UNDER THE CARE OF , ONCOLOGIST IN [place], [place]. HE HAS RECENTLY STARTED CHEMO INJECTIONS. HE IS ALSO UNDER THE CARE OF , CARDIOLOIST AT [facility]. HIS LAST ECHO WAS OBTAINED IN JUNE OF 2020. HIS EJECTION FRACTION AT THAT TIME WAS 50%. IT ALSO REVEALED MILD PULMONARY HYPERTENSION, MILD TRICUSPID REGURGITATION, AND MODERATE DIASTOLIC DYSFUNCTION. EXAMINATION REVEALED DIMINISHED LUNG SOUNDS THROUGHOUT AND 2+ PITTING EDEMA TO LOWER EXTREMITIES. ON ARRIVAL TO THE ER, VITALS WERE 99.9-83-20-99%-176/100. LABS WERE OBTAINED. ABNORMAL LAB VALUES INCLUDE THE FOLLOWING: WBC 15.8, RBC 4.43, HGB 10.8, HCT 34.9, BUN 21, CREATININE 1.70, GLUCOSE 187, TOTAL BILI 3.50, BNP 1630. CARDIAC ENZYMES WERE WITHIN NORMAL LIMITS. URINALYSIS UNREMARKABLE. COVID-19 NEGATIVE. A CHEST XRAY WAS OBTAINED AND REVEALED: 1. The heart size is globally enlarged with findings suggesting mild degree of pulmonary edema.Correlation with patient BNP levels may be helpful. EKG REVEALED: SINUS RHYTHM WITH HR 80. AN ABDOMINAL ULTRASOUND WAS OBTAINED AND REVEALED: Mildly echogenic liver suggestive of hepatic steatosis or other parenchymal disease. Gallbladder appears normal. No common duct dilatation. IN THE ER, HE WAS GIVEN LASIX 60MG IV X 1 DOSE, CATAPRES 0.2MG PO X 1, AND COREG 25MG PO X 1 DOSE, ZOFRAN 4MG IM X 1 DOSE. HIS BLOOD PRESSURE DID DECREASE TO 138/84. HE WAS ADMITTED TO THE HOSPITAL FOR FURTHER EVALUATION AND TREATMENT OF PULMONARY EDEMA, SOB, CHF, ACUTE BRONCHITIS, N/V, AND ELEVATED BILIRUBIN. HE WAS STARTED ON LASIX 40MG IV BID, PEPCID 20 MG IV DAILY, LEVAQUIN 500MG IV DAILY, ZESTRIL 2.5MG PO BID, COREG 6.25MG PO BID, ZOFRAN 4MG IV Q6H PRN, ALDACTONE 25MG PO DAILY, RESTORIL 15MG PO HS PRN, AND THE POTASSIUM AND MAGNESIUM PROTOCOLS. OTHERWISE, WE PLAN TO FOLLOW UP WITH AM LABS AND CONTINUE TO MONITOR. TIME SPENT ON CLINICAL ASSESSMENT, REVIEWING LABS AND IMAGING, DECISION MAKING, DOCUMENTATION WAS GREATER THAN 75 MINUTES. - Past Medical History Past Medical History: CHF, Hypertension, Sleep Apnea Additional Medical History: PTSD, "BONE CANCER" - Past Surgical History Surgical History: Other - Family History Family Medical History: Diabetes Mellitus, Hypertension - Social History Does patient currently use any type of tobacco product: No Have you used tobacco products in the last 12 months: No Type of Tobacco Use: None Does any household member use tobacco: No Alcohol Use: Rarely Drug Use: None - Medications Home Medications: No Known Drug Allergies Allergy (Verified 08/31/20 14:03) CONTINUE taking the following medications COVID-19 vacc,mRNA([employer])(PF) 0.3 ml IM Q3W 09/18/20 [History] amoxicillin 500 mg PO TID 09/18/20 [History] furosemide 40 mg PO DAILY 09/18/20 [History] levofloxacin 750 mg PO Q24H 09/18/20 [History] metolazone 5 mg PO TUTHSA 09/18/20 [History] spironolactone 25 mg PO DAILY 09/18/20 [History] - Review of Systems Constitutional: See HPI, Weakness. denies: Fever, Chills Eyes: No Symptoms Reported ENT: No Symptoms Reported Respiratory: See HPI, Cough, Shortness of Breath, SOB with Excertion. denies: Wheezing Cardiovascular: Edema (2+ PITTING EDEMA TO LOWER EXTREMITIES ) Gastrointestinal: See HPI, Nausea, Vomiting. denies: Abdominal Pain Genitourinary: No Symptoms Reported Musculoskeletal: No Symptoms Reported Skin: No Symptoms Reported Neurological: Weakness - Physical Exam Vital Signs: Temperature 99.3 F Pulse Rate [Left] 110 Pulse Rate 67 Respiratory Rate 20 Blood Pressure [Left Arm] 131/91 Blood Pressure 176/110 O2 Sat by Pulse Oximetry 97 Oriented: Normal Eyes: Normal Ear: Normal Nose: Normal Throat: Normal Respiratory: Diminished Throughout Cardiovascular: Edema (2+ PITTING EDEMA TO LOWER EXTREMITIES ) : Normal Auscultation: Bowel Sounds: Normal Palpation: Normal Tenderness: Normal Skin: Normal Musculoskeletal: Normal Psychiatric: Normal Mood Description: Calm Affect: Normal Speech Pattern: Clear - Assessment/Plan (1) CHF (congestive heart failure) Qualifiers: Heart failure type: diastolic Heart failure chronicity: acute on chronic Qualified Code(s): I50.33 - Acute on chronic diastolic (congestive) heart failure Status: Acute Plan: ADMIT, LASIX 40MG IV BID, PEPCID 20 MG IV DAILY, LEVAQUIN 500MG IV DAILY, ZESTRIL 2.5MG PO BID, COREG 6.25MG PO BID, ZOFRAN 4MG IV Q6H PRN, ALDACTONE 25MG PO DAILY, RESTORIL 15MG PO HS PRN, AND THE POTASSIUM AND MAGNESIUM PROTOCOLS. (2) Pulmonary edema Qualifiers: Chronicity: acute Qualified Code(s): J81.0 - Acute pulmonary edema Status: Acute (3) Acute bronchitis Qualifiers: Bronchitis organism: unspecified organism Qualified Code(s): J20.9 - Acute bronchitis, unspecified Status: Acute (4) Nausea & vomiting Qualifiers: Vomiting type: unspecified Vomiting Intractability: non-intractable Qualified Code(s): R11.2 - Nausea with vomiting, unspecified Status: Acute (5) SOB (shortness of breath) Status: Acute - Allergies Allergies/Adverse Reactions: Allergies Allergy/AdvReac Type Severity Reaction Status Date / Time No Known Drug Allergies Allergy Verified 08/31/20 14:03
[2020-09-19] MEDS: MAGNESIUM SULFATE 1 GRAM/100 mL PREMIX 1 GM/100 ML BAG IV PRN ×2 (13:46→16:05)
[2020-09-19] MEDS ORDERED: NORCO 5/325 MG TAB PO PRN (19:51)
[2020-09-19] MEDS: RESTORIL CAP 15 MG PO PRN (21:53)
[2020-09-20 06:24] LABS: CALCIUM 8.8 mg/dL (8.5-10.1); CARBON DIOXIDE 32.7 mmol/L (21-32); COR CA(FOR HYPOALB) 9.6 mg/dL (8.5-10.1); CREATININE 1.93 mg/dL (0.70-1.30); MAGNESIUM 2.1 mg/dL (1.7-2.9); TOTAL PROTEIN 5.8 g/dL (6.4-8.2)
[2020-09-20 06:25] LABS: BASOPHILS # (AUTO) 0.1 X10^3/uL (0.0-0.1); BASOPHILS % (AUTO) 0.6 % (0.2-1.0); EOSINOPHILS # (AUTO) 0.3 x10^3/uL (0.0-0.2); EOSINOPHILS % (AUTO) 3.1 % (0.9-2.9); HEMATOCRIT 39.3 % (42.0-54.0); HEMOGLOBIN 12.5 g/dL (13.5-18.0); LYMPHOCYTES # (AUTO) 1.3 X10^3/uL (1.3-2.9); LYMPHOCYTES % (AUTO) 14.4 % (21.0-51.0); MEAN CORPUSCULAR HEMOGLOBIN 24.9 pg (27.0-34.0); MEAN CORPUSCULAR HGB CONC 31.7 g/dL (33.0-35.0); MEAN CORPUSCULAR VOLUME 78.4 fL (80.0-100.0); MEAN PLATELET VOLUME 9.4 fL (7.4-11.0); MONOCYTES # (AUTO) 0.7 x10^3/uL (0.3-0.8); MONOCYTES % (AUTO) 7.5 % (0.0-13.0); NEUTROPHILS # (AUTO) 6.8 x10^3/uL (2.2-4.8); NEUTROPHILS % (AUTO) 74.4 % (42.0-75.0); PLATELET COUNT 170 X10^3/uL (150.0-450.0); RED BLOOD COUNT 5.01 X10^6/uL (4.7-6.0); RED CELL DISTRIBUTION WIDTH 23.7 % (11.6-16.5); WHITE BLOOD COUNT 9.1 X10^3/uL (3.6-10.0)
--- NOTE | 2020-09-20 06:35 | RAD ---
HISTORYSOBSTUDYCHEST, 1 [id number]/30/2021.TECHNIQUEAP view of the chestFINDINGSThe cardiac silhouette is stably enlarged. Mediastinal contours appear stable. Continued mild improvement in perihilar opacities with mild residual airspace opacity on the left. No definite pleural effusion or pneumothorax. Soft tissue attenuation limits evaluation.IMPRESSIONContinued improvement in presumed mild pulmonary edema.Electronically signed by: Gallito Rubi (Sep 20, 2020 06:33:41)
[2020-09-20 07:05] LABS: ANISOCYTOSIS 2+; HYPOCHROMASIA 1+; MICROCYTOSIS SLIGHT; PLATELET MORPHOLOGY COMMENT NORMAL (NORMAL); POIKILOCYTOSIS SLIGHT; TARGET CELLS OCC.; TEAR DROP CELLS OCC.
[2020-09-20 08:24] VITALS: BP 127/63
[2020-09-20] MEDS ORDERED: LEVAQUIN PREMIX IV 250 MG 250 MG/50 ML BAG IV SCH (09:00)
[2020-09-20] MEDS: PEPCID 20 MG IV PREMIX* 20 MG/50 ML BAG IV SCH (09:35)
[2020-09-20] MEDS: COREG TAB 6.25 MG PO SCH (09:35)
[2020-09-20] MEDS: ALDACTONE TAB 25 MG PO SCH (09:40)
[2020-09-20] MEDS: ZESTRIL TAB 5 MG PO SCH (09:40)
[2020-09-20] MEDS ORDERED: LASIX IVP ONE ×2 (10:04→10:09)
[2020-09-20] MEDS ORDERED: LANOXIN PO ONE (10:04)
[2020-09-20] MEDS ORDERED: LANOXIN or DIGITEK ONE (10:09)
--- NOTE | 2020-10-04 10:21 | PCM.PROG ---
Progress Note - Progress Note for Day of Date of Exam: 09/19/20 - Subjective Subjective: WAS ADMITTED FOR TREATMENT OF CHF, PULMONARY EDEMA, ACUTE BRONCHITIS, NAUSEA AND VOMITING, AND SHORTNESS OF BREATH. PATIENT HAS A HISTORY OF BONE CANCER AND IS CURRENTLY UNDER THE CARE OF AN ONCOLOGIST IN [place], [place]. 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 TODAY, HE IS ALERT AND ORIENTED, SITTING UP IN BED ON MORNING ROUNDS. HE CONTINUES WITH A COUGH AND SHORTNESS OF BREATH. COUGH IS NON-PRODUCTIVE. HE DENIES CHEST PAIN OR NAUSEA THIS MORNING. ON EXAMINATION, HEART IS REGULAR IN RHYTHM. HE IS SLIGHTLY TACHYCARDIC WITH HR 110. BILATERAL LUNGS ARE NOTED WITH DIMINISHED LUNG SOUNDS THROUGHOUT. ABDOMEN IS ROUND, SOFT, AND NON-TENDER WITH NORMAL BOWEL SOUNDS NOTED IN ALL QUADRANTS. BILATERAL LOWER EXTREMITIES ARE NOTED WITH 1+ PITTING EDEMA. HIS VITALS THIS MORNING ARE: 99.3-110-20-97%-131/91. LABS WERE OBTAINED. ABNORMAL LAB VALUES INCLUDE THE FOLLOWING: WBC 11.4, RBC 4.39, HGB 10.5, HCT 34.3, POTASSIUM 3.4, CHLORIDE 97, CARBON DIOXIDE 33.0, CREATININE 1.83, GLUCOSE 112, MAGNESIUM 1.6, TOTAL BILI 3.80, AST 13, ALK PHOS 37, BNP 869, TOTAL PROTEIN 5.8, ALBUMIN 3.1, TRIGLYCERIDES 191, CHOLESTEROL 212, LDL 109, HDL 65. CHEST XRAY REVEALED: Mild improvement in presumed pulmonary edema. HE IS CURRENTLY RECEIVING LASIX 40MG IV BID, PEPCID 20 MG IV DAILY, LEVAQUIN 500MG IV DAILY, ZESTRIL 2.5MG PO BID, COREG 6.25MG PO BID, ZOFRAN 4MG IV Q6H PRN, ALDACTONE 25MG PO DAILY, RESTORIL 15MG PO HS PRN, AND THE POTASSIUM AND MAGNESIUM PROTOCOLS. WE WILL OBTAIN AN ECHO TODAY. OTHERWISE, WE WILL CONTINUE WITH CURRENT PLAN OF CARE. TIME SPENT ON CLINICAL ASSESSMENT, REVIEWING LABS AND IMAGING, DECISION MAKING, AND DOCUMENTATION GREATER THAN 45 MINUTES. - Past Medical Family Social History Past Med/Fam/Surg Hx: No changes since H&P Allergies: Allergies No Known Drug Allergies Allergy (Verified 08/31/20 14:03) - Review of Systems ROS: No change since H&P - Vital Signs and I&O's Vital Signs: Temperature 97.0 F Pulse Rate [Left] 62 Pulse Rate 62 Respiratory Rate 18 Blood Pressure [Left Arm] 127/63 Blood Pressure 176/110 O2 Sat by Pulse Oximetry 98 - Physical Exam Oriented: Normal Eyes: Normal Ear: Normal Nose: Normal Throat: Normal Respiratory: Generalized, Diminished Cardiovascular: Edema (1+ PITTING EDEMA TO LOWER EXTREMITIES ) : Normal Auscultation: Bowel Sounds: Normal Palpation: Normal Tenderness: Normal Skin: Normal Musculoskeletal: Normal Psychiatric: Normal Mood Description: Calm Affect: Normal Speech Pattern: Clear, Appropriate - Laboratory and Diagnostics Result Diagrams: 09/20/20 05:30 09/20/20 05:30 Labs: Laboratory WBC 9.1 X10^3/uL (3.6-10.0) 09/20/20 05:30 RBC 5.01 X10^6/uL (4.7-6.0) 09/20/20 05:30 Hgb 12.5 g/dL (13.5-18.0) L D 09/20/20 05:30 Hct 39.3 % (42.0-54.0) L 09/20/20 05:30 MCV 78.4 fL (80.0-100.0) L 09/20/20 05:30 MCH 24.9 pg (27.0-34.0) L 09/20/20 05:30 MCHC 31.7 g/dL (33.0-35.0) L 09/20/20 05:30 RDW 23.7 % (11.6-16.5) H 09/20/20 05:30 Plt Count 170 X10^3/uL (150.0-450.0) 09/20/20 05:30 Plt Count Comment Adequate (ADEQUATE) 09/20/20 05:30 Plt Count Comment Cancelled 09/20/20 05:30 MPV 9.4 fL (7.4-11.0) 09/20/20 05:30 Neut % (Auto) 74.4 % (42.0-75.0) 09/20/20 05:30 Lymph % (Auto) 14.4 % (21.0-51.0) L 09/20/20 05:30 [place] % (Auto) 7.5 % (0.0-13.0) 09/20/20 05:30 Eos % (Auto) 3.1 % (0.9-2.9) H 09/20/20 05:30 Baso % (Auto) 0.6 % (0.2-1.0) 09/20/20 05:30 Neut # (Auto) 6.8 x10^3/uL (2.2-4.8) H 09/20/20 05:30 Lymph # (Auto) 1.3 X10^3/uL (1.3-2.9) 09/20/20 05:30 [place] # (Auto) 0.7 x10^3/uL (0.3-0.8) 09/20/20 05:30 Eos # (Auto) 0.3 x10^3/uL (0.0-0.2) H 09/20/20 05:30 Baso # (Auto) 0.1 X10^3/uL (0.0-0.1) 09/20/20 05:30 Absolute Nucleated RBC 0.9 /100WBC 09/20/20 05:30 Total Counted Cancelled 09/20/20 05:30 Neutrophils % (Manual) Cancelled 09/20/20 05:30 Band Neutrophils % Cancelled 09/20/20 05:30 Lymphocytes % (Manual) Cancelled 09/20/20 05:30 Monocytes % (Manual) Cancelled 09/20/20 05:30 Eosinophils % (Manual) Cancelled 09/20/20 05:30 Basophils % (Manual) Cancelled 09/20/20 05:30 Metamyelocytes % Cancelled 09/20/20 05:30 Myelocytes % Cancelled 09/20/20 05:30 Promyelocytes % Cancelled 09/20/20 05:30 Nucleated RBCs Cancelled 09/20/20 05:30 Nucleated RBCs Cancelled 09/20/20 05:30 Atypical Lymphocytes Cancelled 09/20/20 05:30 Atypical Lymphocytes Cancelled 09/20/20 05:30 Blast Cells Cancelled 09/20/20 05:30 Blast Cells Cancelled 09/20/20 05:30 Smudge Cells Cancelled 09/20/20 05:30 Smudge Cells Cancelled 09/20/20 05:30 Toxic Granulation Cancelled 09/20/20 05:30 Toxic Granulation Cancelled 09/20/20 05:30 Dohle Bodies Cancelled 09/20/20 05:30 Dohle Bodies Cancelled 09/20/20 05:30 Castillo Rods Cancelled 09/20/20 05:30 Castillo Rods Cancelled 09/20/20 05:30 Plt Clumps, EDTA Cancelled 09/20/20 05:30 Plt Clumps, EDTA Cancelled 09/20/20 05:30 Giant Platelets Cancelled 09/20/20 05:30 Giant Platelets Cancelled 09/20/20 05:30 Plt Morphology Comment Cancelled 09/20/20 05:30 Plt Morphology Comment Normal (NORMAL) 09/20/20 05:30 RBC Morphology Abnormal (NORMAL) 09/20/20 05:30 RBC Morphology Cancelled 09/20/20 05:30 Dimorphic RBCs Cancelled 09/20/20 05:30 Dimorphic RBCs Cancelled 09/20/20 05:30 Polychromasia Cancelled 09/20/20 05:30 Polychromasia Cancelled 09/20/20 05:30 Hypochromasia 1+ A 09/20/20 05:30 Hypochromasia Cancelled 09/20/20 05:30 Poikilocytosis Cancelled 09/20/20 05:30 Poikilocytosis Slight A 09/20/20 05:30 Basophilic Stippling Cancelled 09/20/20 05:30 Basophilic Stippling Cancelled 09/20/20 05:30 Anisocytosis 2+ A 09/20/20 05:30 Anisocytosis Cancelled 09/20/20 05:30 Microcytosis Cancelled 09/20/20 05:30 Microcytosis Slight A 09/20/20 05:30 Macrocytosis Cancelled 09/20/20 05:30 Macrocytosis Cancelled 09/20/20 05:30 Spherocytes Cancelled 09/20/20 05:30 Spherocytes Cancelled 09/20/20 05:30 Pappenheimer Bodies Cancelled 09/20/20 05:30 Pappenheimer Bodies Cancelled 09/20/20 05:30 Sickle Cells Cancelled 09/20/20 05:30 Sickle Cells Cancelled 09/20/20 05:30 Target Cells Cancelled 09/20/20 05:30 Target Cells Occ. 09/20/20 05:30 Tear Drop Cells Cancelled 09/20/20 05:30 Tear Drop Cells Occ. 09/20/20 05:30 Ovalocytes Cancelled 09/20/20 05:30 Ovalocytes Cancelled 09/20/20 05:30 Stomatocytes Cancelled 09/20/20 05:30 Stomatocytes Cancelled 09/20/20 05:30 Helmet Cells Cancelled 09/20/20 05:30 Helmet Cells Cancelled 09/20/20 05:30 [place] Bodies Cancelled 09/20/20 05:30 [place] Bodies Cancelled 09/20/20 05:30 [place] Rings Cancelled 09/20/20 05:30 [place] Rings Cancelled 09/20/20 05:30 Phill Cells Cancelled 09/20/20 05:30 Phill Cells Cancelled 09/20/20 05:30 Crenated Cell Cancelled 09/20/20 05:30 Crenated Cell Cancelled 09/20/20 05:30 Acanthocytes (Spur) Cancelled 09/20/20 05:30 Acanthocytes (Spur) Cancelled 09/20/20 05:30 Rouleaux Cancelled 09/20/20 05:30 Rouleaux Cancelled 09/20/20 05:30 Schistocytes Cancelled 09/20/20 05:30 Schistocytes Cancelled 09/20/20 05:30 PT 14.4 SECONDS (11.8-14.3) 09/19/20 05:23 INR Target Range - 09/19/20 05:23 INR 1.16 (0.8-1.3) 09/19/20 05:23 APTT 27.3 SECONDS (22.9-36.5) 09/19/20 05:23 PTT Comment - 09/19/20 05:23 Sodium 135 mmol/L (136-145) L 09/20/20 05:30 Corrected Sodium 136 mmol/L (136-145) 09/20/20 05:30 Potassium 3.4 mmol/L (3.5-5.1) L 09/20/20 05:30 Chloride 96 mmol/L (98-107) L 09/20/20 05:30 Carbon Dioxide 32.7 mmol/L (21-32) H 09/20/20 05:30 BUN 16 mg/dL (7-18) 09/20/20 05:30 Creatinine 1.93 mg/dL (0.70-1.30) H 09/20/20 05:30 Est GFR (MDRD) Af Amer 47 (>60) L 09/20/20 05:30 Est GFR (MDRD) Non-Af 38 (>60) L 09/20/20 05:30 Glucose 130 mg/dL (65-99) H 09/20/20 05:30 Calcium 8.8 mg/dL (8.5-10.1) 09/20/20 05:30 Corrected Calcium 9.6 mg/dL (8.5-10.1) 09/20/20 05:30 Magnesium 2.1 mg/dL (1.7-2.9) 09/20/20 05:30 Total Bilirubin 3.40 mg/dL (0.2-1.0) H 09/20/20 05:30 AST 15 Units/L (15-37) 09/20/20 05:30 ALT 22 Units/L (12-78) 09/20/20 05:30 Alkaline Phosphatase 38 Units/L (46-116) L 09/20/20 05:30 Creatine Kinase 31 Units/L (39-308) L 09/18/20 23:31 CK-MB (CK-2) < 1.0 ng/mL (0-4.0) 09/18/20 23:31 CK/CKMB % Calc 3.2 % (<4) 09/18/20 23:31 Troponin I 0.21 ng/mL (0-1.5) 09/18/20 23:31 B-Natriuretic Peptide 507 pg/mL (0-79) H* 09/20/20 05:30 Total Protein 5.8 g/dL (6.4-8.2) L 09/20/20 05:30 Albumin 3.0 g/dL (3.4-5.0) L 09/20/20 05:30 Globulin 2.8 g/dL (2.5-4.5) 09/20/20 05:30 Albumin/Globulin Ratio 1.1 Ratio (1.1-2.1) 09/20/20 05:30 Triglycerides 191 mg/dL (0-150) H 09/19/20 05:23 Cholesterol 212 mg/dL (0-200) H 09/19/20 05:23 LDL Cholesterol, Calc 109 mg/dL (0-100) H 09/19/20 05:23 HDL Cholesterol 65 mg/dL (40-60) H 09/19/20 05:23 Cholesterol/HDL Ratio 3.3 (0.0-5.0) 09/19/20 05:23 Specimen Type Clean catch urine 09/18/20 05:23 Urine Color Pale yellow (YELLOW) 09/18/20 05:23 Urine Appearance Clear (CLEAR) 09/18/20 05:23 Urine pH 7.0 (5.0 - 8.0) 09/18/20 05:23 Ur Specific [place] 1.010 (1.000-1.030) 09/18/20 05:23 Urine Protein Negative (NEGATIVE) 09/18/20 05:23 Urine Glucose (UA) Negative (NEGATIVE) 09/18/20 05:23 Urine Ketones Negative (NEGATIVE) 09/18/20 05:23 Urine Occult Blood Negative (NEGATIVE) 09/18/20 05:23 Urine Nitrite Negative (NEGATIVE) 09/18/20 05:23 Urine Bilirubin Negative (NEGATIVE) 09/18/20 05:23 Urine Urobilinogen Normal (NORMAL) 09/18/20 05:23 Ur Leukocyte Esterase Negative (NEGATIVE) 09/18/20 05:23 SARS CoV-2 RNA Rapid ANGE Negative (NEGATIVE) 09/18/20 09:30 - Plan (1) CHF (congestive heart failure) Status: Acute Qualifiers: Heart failure type: diastolic Heart failure chronicity: acute on chronic Qualified Code(s): I50.33 - Acute on chronic diastolic (congestive) heart failure Plan: ECHO, LASIX 40MG IV BID, PEPCID 20 MG IV DAILY, LEVAQUIN 500MG IV DAILY, ZESTRIL 2.5MG PO BID, COREG 6.25MG PO BID, ZOFRAN 4MG IV Q6H PRN, ALDACTONE 25MG PO DAILY, RESTORIL 15MG PO HS PRN, AND THE POTASSIUM AND MAGNESIUM PROTOCOLS. (2) Pulmonary edema Status: Acute Qualifiers: Chronicity: acute Qualified Code(s): J81.0 - Acute pulmonary edema (3) Acute bronchitis Status: Acute Qualifiers: Bronchitis organism: unspecified organism Qualified Code(s): J20.9 - Acute bronchitis, unspecified (4) Nausea & vomiting Status: Acute Qualifiers: Vomiting type: unspecified Vomiting Intractability: non-intractable Qualified Code(s): R11.2 - Nausea with vomiting, unspecified (5) SOB (shortness of breath) Status: Acute
== END 2020-09-20 10:55 | disposition home or self-care (01) ==
LOC: ER 02:29 → INTOOBSV 10:03 → MED/SURG 10:03
PROVIDERS: ADMIT Internal Medicine; ATTEND Internal Medicine